=== PATIENT | female | born 1945 | race Caucasian/White ===

== ENCOUNTER 2018-05-02 14:54 | Outpatient (RCR) | payer MEDICARE | END 2018-05-06 | disposition home or self-care (01) | LOC: ONC 14:54 | PROVIDERS: ATTEND Internal Medicine Hematology & Oncology | DX: C78.02 Secondary malignant neoplasm of left lung (principal); I10 Essential (primary) hypertension; E03.9 Hypothyroidism, unspecified; Z79.899 Other long term (current) drug therapy | CPT/HCPCS: 99214 ==